=== PATIENT | female | born 1965 | race African-American/Black ===

== ENCOUNTER → 2021-06-18 | Outpatient (CLI) | payer MEDICARE, MEDICAID ==
[~2021-06-18] MED LIST: ALPR0.5T8 PO; BP MEDS PO
== END | disposition home or self-care (01) ==
LOC: RADPV 11:52
PROVIDERS: ATTEND Internal Medicine Cardiovascular Disease
DX: I08.8 Other rheumatic multiple valve diseases (principal); N18.6 End stage renal disease; I42.9 Cardiomyopathy, unspecified
CPT/HCPCS: 93306